=== PATIENT | male | born 1930 | race Caucasian/White ===

== ENCOUNTER → 2017-03-31 | Outpatient (CLI) | payer MEDICARE, BC ==
[~2017-03-31] MED LIST: ASPIRIN81 M2 PO; ASPIRINEC PO; FISH OIL 1,2001 EAC3 PO; JANUVIA PO; JANUVIA50 MG PO; LANTUS SOL100 UNIT/1 SUBQ; LANTUS100 U/ML SQ; LIPITOR PO; LIPITOR40 MG PO; LISINOPRIL PO; OMEPRAZOLE40 M1 PO; PRILOSEC PO; SURFAK240 MG PO; VITAMIN C 500500 MG PO; VITAMIN D1000 UNIT PO; [UNRECOGNIZED DRUG - OTHER] TOP
--- NOTE | ~2017-03-31 | XA51 ---
[facility] A Service of [facility] & [facility] RADIOLOGY TEXT RESULTS PATIENT: CINDY PEARCE LOCATION: [facility] : 32 UNIT #: [id number] AGE: [address]: Karen Khanna MD SEX: M ORDER DR: [id number] [facility] [address], [place] [address] [id number] O MR#: [id number] Acc #: [id number] NAME: CINDY PEARCE. : 1930 SEX: M STUDY DATE/TIME: 03/31/2017 UNIT: [facility] ROOM: STUDY DESCRIPTION: XA BX Bone Marrow Attending Physician: Karen Khanna M.D. Ordering Physician: Karen Khanna M.D. Primary Care Physician: Salome Goyal M.D. MEDICAL IMAGING REPORT This report is preliminary unless electronic signature is present EXAM BX bone marrow FINDINGS Please see CT guide for results. Dictated by... Shabana Glez M.D. THIS IS AN ELECTRONICALLY VERIFIED REPORT Shabana Glez M.D. at 04/04/2017 3:28 PM AFF/good TD: 04/01/2017 09:20 JOB #: [id number] MEDICAL IMAGING REPORT Page 1 of 1 COPY
--- NOTE | ~2017-03-31 | CT134 ---
[facility] A Service of [facility] & [facility] RADIOLOGY TEXT RESULTS PATIENT: CINDY PEARCE [facility] : 32 UNIT #: [id number] AGE: [address]: Karen Khanna MD SEX: M ORDER DR: [id number] [facility] [address] [place], [place] [address] [id number] O MR#: [id number] [facility] #: [id number] NAME: CINDY PEARCE. : 1930 SEX: M STUDY DATE/TIME: 03/31/2017 8:44 UNIT: [facility] ROOM: STUDY DESCRIPTION: CT Guide Attending Physician: Karen Khanna M.D. Ordering Physician: Karen Khanna M.D. Primary Care Physician: Salome Goyal M.D. MEDICAL IMAGING REPORT This report is preliminary unless electronic signature is present EXAM CT-guided bone marrow biopsy. INDICATION Arrhythmia. Patient is JAK2 positive. TECHNIQUE This CT exam was performed with one or more of the following radiation dose reduction techniques: automatic exposure control, adjustment of mA and/or kV according to patient size, and iterative reconstruction. PROCEDURE The risks, benefits, and alternatives to the procedure were explained to the patient, and signed, informed consent was obtained. He was placed prone on the CT scanner gantry. Preliminary CT scan was performed through the region of interest. An appropriate site overlying the patient's left iliac bone was selected, overlying skin was marked. Patient was prepped and draped in the usual sterile fashion. Time-out was performed as per protocol. Skin and subcutaneous tissues were anesthetized with buffered lidocaine and bone marrow biopsy needle was advanced into the left iliac bone. Repeat CT scan confirmed appropriate position of the needle. At this point, the needle was advanced and a bone marrow aspirate was obtained. The needle was then advanced further into bone marrow and removed which yielded an adequate core sample. Manual pressure was then applied until hemostasis was obtained. The patient tolerated the procedure well and there were no immediate complications. Moderate sedation was provided to the patient consisting of 2 mg of Versed and 50 mcg of fentanyl. I supervised the IVR nurse who monitored the patient's vital signs for a total of 10 minutes of face to face time. [facility] A Service of [facility] RADIOLOGY TEXT RESULTS PATIENT: CINDY PEARCE LOCATION: [facility] #: [id number] : 34 UNIT #: [id number] AGE: [address]: Karen Khanna MD SEX: M ORDER DR: Dictated by... Shabana Glez M.D. THIS IS AN ELECTRONICALLY VERIFIED REPORT Shabana Glez M.D. at 04/04/2017 3:28 PM AFF/good TD: 04/01/2017 09:08 JOB #: [id number] MEDICAL IMAGING REPORT Page 1 of 1 COPY
[2017-03-31 07:37] LABS: HEMATOCRIT 33.6 % (38.0-50.0); HEMOGLOBIN 10.7 gm/dL (13.0-16.0); MEAN CELL VOLUME 81.9 FL (83-96); MEAN CORPUSCULAR HGB CONC 31.7 g/dL (30-36); MEAN PLATELET VOLUME 7.6 FL (6.5-11.5); RED BLOOD COUNT 4.11 X10e (3.90-5.60); RED CELL DISTRIBUTION WIDTH 24.4 % (11.0-15.5); WHITE BLOOD COUNT 16.3 X10e3 (4.0-10.5)
[2017-03-31 07:50] LABS: INR 1.1; PARTIAL THROMBOPLASTIN TIME 28.4 SECONDS (23.5-31.3); PROTHROMBIN TIME (PATIENT) 11.8 SECONDS (10.0-11.7)
== END | disposition home or self-care (01) ==
LOC: CIVR 06:59
PROVIDERS: Internal Medicine Hematology
DX: D72.823 Leukemoid reaction (principal); D50.8 Other iron deficiency anemias; K90.9 Intestinal malabsorption, unspecified; E11.22 Type 2 diabetes mellitus with diabetic chronic kidney disease; N18.3 Chronic kidney disease, stage 3 (moderate); E11.42 Type 2 diabetes mellitus with diabetic polyneuropathy; E78.5 Hyperlipidemia, unspecified
CPT/HCPCS: 38221; G0364; 36415; 77012; 85027; 85610; 85730; 88184; 88185; 88237; 88264; 88305; 88311; 88313; 88323; 88342; 99144; 99152; 99153; J2250; J3010

== ENCOUNTER → 2017-04-21 | Outpatient (CLI) | payer MEDICARE, BC ==
--- NOTE | ~2017-04-21 | US5 ---
[facility] A Service of [facility] & [facility] RADIOLOGY TEXT RESULTS PATIENT: CINDY PEARCE LOCATION: [facility] : 32 UNIT #: [id number] AGE: [address]: Karen Khanna MD SEX: M ORDER DR: [id number] [facility] [address] [place], [place] [address] [id number] O MR#: [id number] [facility] #: [id number] NAME: CINDY PEARCE : 1930 SEX: M STUDY DATE/TIME: 04/21/2017 7:40 UNIT: [facility] ROOM: STUDY DESCRIPTION: US Abdominal Complete Attending Physician: Karen Khanna M.D. Referring Physician: Karen Khanna M.D. Ordering Physician: Karen Khanna M.D. Primary Care Physician: Salome Goyal M.D. MEDICAL IMAGING REPORT This report is preliminary unless electronic signature is present EXAM Abdominal ultrasound. INDICATIONS Iron-deficiency anemia. Intestinal malabsorption, leukemoid reaction. Patient had abnormal labs on March 31, 2017. He had a bone marrow biopsy on March 31, 2017. TECHNIQUE Dasilva-scale, color Doppler and spectral Doppler waveform analysis was performed through the abdomen. FINDINGS Abdominal aorta measures within normal size limits. Inferior vena cava is patent. Liver measures within normal size limits. Visualized portions of the pancreas appear unremarkable. Liver measures within normal size limits. Crusher And Binder Operator questions increased echogenicity of the liver, although this is not clearly demonstrated on the submitted images. Certainly no suspicious masses are seen. There is no intra- or extrahepatic biliary dilatation. I question some cortical thinning within the kidneys bilaterally. This may be related to technique, but cortical thinning can be seen in the setting of chronic medical renal disease. Correlation with patient's laboratory values is suggested. No hydronephrosis is identified. No stones or sludge are seen within the gallbladder. There is no gallbladder wall thickening or pericholecystic fluid. The spleen is enlarged, measuring up to 15.7 cm in length. IMPRESSION 1. Splenomegaly. 2. Crusher And Binder Operator questions some increased echogenicity within the liver; this is not convincingly demonstrated on the submitted images. Certainly no hepatic masses are seen, and there is intra- or extrahepatic biliary dilatation. [facility] A Service of [facility] RADIOLOGY TEXT RESULTS PATIENT: CINDY PEARCE LOCATION: [place] : 32 UNIT #: [id number] AGE: [address]: Karen Khanna MD SEX: M ORDER DR: 3. I do question if there is some cortical thinning involving the kidneys bilaterally. This may be artifactual, related to technique, but certainly correlation with laboratory values is suggested. Dictated by... Shabana Glez M.D. THIS IS AN ELECTRONICALLY VERIFIED REPORT Shabana Glez M.D. at 04/21/2017 4:54 PM RENY/gustavo TD: 04/21/2017 15:59 JOB #: [id number] MEDICAL IMAGING REPORT Page 1 of 1 COPY
== END | disposition home or self-care (01) ==
LOC: CGUS 07:19
DX: D72.823 Leukemoid reaction (principal); D50.8 Other iron deficiency anemias; K90.9 Intestinal malabsorption, unspecified; R16.1 Splenomegaly, not elsewhere classified
CPT/HCPCS: 76700